=== PATIENT | female | born 2000 ===

== ENCOUNTER 2020-10-28 11:49 | Emergency (ER) ==
[2020-10-28 12:11] VITALS: BP 115/78
== END 2020-10-28 12:39 ==
LOC: ED 11:49
DX: S60.921A Unspecified superficial injury of right hand, initial encounter (principal); S99.922A Unspecified injury of left foot, initial encounter; Z53.21 Procedure and treatment not carried out due to patient leaving prior to being seen by health care provider; X58.XXXA Exposure to other specified factors, initial encounter; Y93.89 Activity, other specified; Y92.89 Other specified places as the place of occurrence of the external cause; Y99.8 Other external cause status